=== PATIENT | male | born 1980 | race Two or more races ===

== ENCOUNTER 2019-08-05 12:42 | Emergency (ER) | payer OTHER ==
[~2019-08-05] VITALS: Ht 180.3 cm; Wt 98.0 kg
[2019-08-05] MEDS ORDERED: CYCLOBENZAPRINE 10MG TABLET PO ONE (15:15)
[2019-08-05] MEDS ORDERED: KETOROLAC 30MG/ML VIAL IM ONE (15:15)
[2019-08-05] MEDS ORDERED: HYDROCODONE/ACETAMINOPHEN 5/325MG TABLET PO ONE (16:30)
[2019-08-05 17:36] VITALS: BP 126/76
== END 2019-08-05 17:36 | disposition home or self-care (01) ==
LOC: ER 14:12
DX: S39.82XA Other specified injuries of lower back, initial encounter (principal); E11.9 Type 2 diabetes mellitus without complications; I10 Essential (primary) hypertension; E78.00 Pure hypercholesterolemia, unspecified; Z88.0 Allergy status to penicillin; X50.0XXA Overexertion from strenuous movement or load, initial encounter; Y93.89 Activity, other specified; Y92.89 Other specified places as the place of occurrence of the external cause; Y99.8 Other external cause status
CPT/HCPCS: 72100; 96372; 99283; J1885